=== PATIENT | female | born 1985 | race Caucasian/White ===

== ENCOUNTER 2017-07-31 16:26 | Emergency (ER) | payer MEDICAID ==
[2017-07-31 16:36] VITALS: RESP 16; TEMP 97.5
[2017-07-31] MEDS ORDERED: SULFAMETHOX/TMP 800/160 MG 1 TAB PO ONE (16:51)
[2017-07-31] MEDS ORDERED: traMADol 50 MG TAB PO ONE (16:56)
[2017-07-31 17:01] LABS: % IMMATURE GRANULYOCYTES 0.4 % (0.0-1.1); ABSOLUTE IMMATURE GRANULOCYTES 0.04 10^3/uL (0.00-0.10); ADD DIFF? NO; ADD MORPH? NO; ADD SCAN? NO; ATYPICAL LYMPHOCYTE FLAG 0 (0-99); FRAGMENT RBC FLAG 0 (0-99); HEMATOCRIT 40.3 % (38.0-47.0); HEMOGLOBIN 13.9 g/dL (12.6-16.3); LEFT SHIFT FLG 0 (0-99); LIPEMIA HEMOLYSIS FLAG 90 (0-99); MEAN CELL HEMOGLOBIN CONCENTR. 34.5 g/dL (32.4-36.7); MEAN PLATELET VOLUME 8.6 fL (8.7-11.7); PLATELET CLUMPS FLAG 0 (0-99); PLATELET COUNT 343 10^3/uL (150-400); RED BLOOD CELL COUNT 4.48 10^6/uL (4.18-5.33); RED CELL DISTRIBUTION WIDTH 12.4 % (11.5-15.2)
[2017-07-31] MEDS ORDERED: ACETAMINOPHEN 500 MG TAB PO ONE (17:09)
--- NOTE | 2017-07-31 17:24 | EDPHY ---
H & P Time Seen by Provider: 07/31/17 16:36 HPI/ROS: 2 weeks prior to arrival this patient used a nose ring to puncture through obstruction of her left naris nasal piercing that she had had for some time and thereafter developed redness to the nose. She thought it resolved over the past 2 days she has developed increased redness pain and a blister that ruptured spontaneously to the tip of the nose. He she reports increasing pain particularly over the past several hours now reports 8/10 pain despite 800 mg of ibuprofen 4 hours prior to arrival. She notes no other exacerbating factors. She states the pain feels like it radiates into her left cheek. ROS: She reports subjective fevers but has not checked her temperature. No high fevers or chills. No fatigue. HEENT: No difficulty breathing through her nose. No ear pain or intraoral complaints Neuro: No headache currently. Integumentary: No skin rash other than red nose. 5 point ROS is otherwise negative Social History: No alcohol. Smoking Status: Never smoked Physical Exam: Physical Exam Vital signs are normal. General: No acute distress HEENT: Nose: Erythema to the left lateral nares present and an area of 1 cm x 6 mm of desquamated tissue consistent with ruptured vesicle to the tip of the nose just left of center. There is mild erythema extends to the lateral nose but not to the cheek. Injured area exam reveals slight edema but no fluctuance. She is able to move air through the left dairy. Right ear exam is normal. No cheek swelling or tenderness. No sinus tenderness to percussion Neck: Supple with no meningismus. No anterior cervical lymphadenopathy. Eyes: Pupils equal and react to light. Extraocular motions are intact. Lungs: No respiratory distress. Cardiac: Brisk capillary refill is intact throughout. Skin: No rash or pallor. Neuro: Alert and oriented x3 with no sensorimotor deficits. Cranial nerves 2- 12 grossly intact Constitutional: Initial Vital Signs Temperature (C) 36.4 C 07/31/17 16:32 Heart Rate 89 07/31/17 16:32 Respiratory Rate 16 07/31/17 16:32 Blood Pressure 116/75 07/31/17 16:32 O2 Sat (%) 97 07/31/17 16:32 O2 Delivery Mode Room Air Allergies/Adverse Reactions: No Known Allergies Allergy (Verified 07/31/17 16:31) Home Medications: Medication Instructions Recorded Cefdinir [Omnicef (RX)] 300 mg PO BID #20 cap 07/31/17 Sulfamethox/Tmp 800/160 mg 1 tab PO BID #20 tab 07/31/17 [Bactrim Ds] oxyCODONE/APAP 5/325 [Percocet 1 - 2 tab PO Q4-6PRN PRN #6 tab 07/31/17 5/325 (*)] traMADol [Ultram 50 mg (*)] 50 - 100 mg PO Q4 PRN #20 tab 07/31/17 MDM/Departure - MDM Medications Given: Discontinued Medications Acetaminophen (Tylenol) 1,000 mg PO EDNOW ONE Stop: 07/31/17 17:10 Last Admin: 07/31/17 17:15 Dose: 1,000 mg Ceftriaxone Sodium 1 gm/ (Sodium Chloride) 100 mls @ 200 mls/hr IV EDNOW ONE PRN Reason: Protocol Stop: 07/31/17 17:20 Last Admin: 07/31/17 17:07 Dose: 100 mls Tramadol HCl (Ultram) 100 mg PO EDNOW ONE Stop: 07/31/17 16:57 Last Admin: 07/31/17 17:09 Dose: 100 mg Trimethoprim/Sulfamethoxazole (Bactrim Ds) 1 ea PO EDNOW ONE PRN Reason: Protocol Stop: 07/31/17 16:52 Last Admin: 07/31/17 17:09 Dose: 1 ea ED Course/Re-evaluation: IV Rocephin 1 g Bactrim p.o. Tramadol and Tylenol. The patient still complains of ongoing significant pain requests something more potent for pain for sleep. I counseled her regarding my caution to use Percocet. The patient has no red flag history-no history of opiates abuse, other drug abuse or addiction. I explained I think her pain will significantly improve over the next 24 hours but provided a small number of Percocet these instead of the tramadol for pain that prevents sleep. She understands that she can take tramadol and Percocet at the same time. Discussion: Patient with facial cellulitis isolated to the nose without clinical evidence of abscess, sepsis or other complicating factors. Will cover her with Omnicef and Bactrim after IV antibiotics here. She understands need to return should she have any significant worsening of her symptoms despite the treatment plan - Depart Disposition: Home, Routine, Self-Care Clinical Impression: Nose cellulitis Condition: Good Instructions: Sulfamethoxazole/Trimethoprim (By mouth), Tramadol (By mouth), Cefdinir (By mouth), Cellulitis (ED) Additional Instructions: Diagnosis: 1. Nasal cellulitis Plan: Apply warm packs to 3 times a day until symptoms resolve Bactrim antibiotic for 10 days Omnicef antibiotic for 10 days. Eat yogurt or take a probiotic while on these medications to prevent diarrhea. Ibuprofen, Tylenol and tramadol for pain control as needed. No driving, alcohol or come tramadol Return for any significant worsening despite treatment plan. Prescriptions: Cefdinir [Omnicef (RX)] 300 mg PO BID #20 cap oxyCODONE/APAP 5/325 [Percocet 5/325 (*)] 1 - 2 tab PO Q4-6PRN PRN #6 tab PRN Reason: Pain Sulfamethox/Tmp 800/160 mg [Bactrim Ds] 1 tab PO BID #20 tab traMADol [Ultram 50 mg (*)] 50 - 100 mg PO Q4 PRN #20 tab PRN Reason: breakthrough pain
[2017-07-31 17:56] VITALS: BP 124/68; PULSE 74; O2SAT 100
== END 2017-07-31 17:55 | disposition home or self-care (01) ==
LOC: CED 16:26
DX: J34.0 Abscess, furuncle and carbuncle of nose (principal)
CPT/HCPCS: 85025-PO; 96365; J0696

== ENCOUNTER 2017-08-18 15:12 | Emergency (ER) | payer MEDICAID ==
[2017-08-18 15:23] VITALS: BP 98/76; PULSE 92; RESP 18; TEMP 98.4; O2SAT 97
[2017-08-18] MEDS ORDERED: CEPHALEXIN 500 MG CAP PO ONE (15:29)
[2017-08-18] MEDS ORDERED: SULFAMETHOX/TMP 800/160 MG 1 TAB PO ONE (15:29)
--- NOTE | 2017-08-18 15:33 | EDPHY ---
H & P Stated Complaint: FACIAL CELLULITIS CONTINUES, INCREASING REDNESS & TENDERNESS, FINISHED ABX Time Seen by Provider: 08/18/17 15:20 HPI/ROS: CHIEF COMPLAINT: Facial cellulitis HISTORY OF PRESENT ILLNESS: Patient is a 32-year-old female who comes to the emergency department complaining of infection to her left cheek and nose. She was seen here on the of last month with an infection of that area after a nasal piercing. She was discharged on Bactrim and Omnicef which she took for 10 days. She states that it seem to improve but never completely resolved. Since going off the antibiotics at has worsened again. No fever. No pain with eye movement. No vision changes. No dental pain. No difficulty breathing. No fever. REVIEW OF SYSTEMS: Constitutional: denies: chills, fever, recent illness, recent injury EENTM: denies: blurred vision, double vision, nose congestion Respiratory: denies: cough, shortness of breath Cardiac: denies: chest pain, irregular heart rate, lightheadedness, palpitations Gastrointestinal/Abdominal: denies: abdominal pain, diarrhea, nausea, vomiting, blood streaked stools Genitourinary: denies: dysuria, frequency, hematuria, pain Musculoskeletal: denies: joint pain, muscle pain Skin: See HPI Neurological: denies: headache, numbness, paresthesia, tingling, dizziness, weakness Hematologic/Lymphatic: denies: blood clots, easy bleeding, easy bruising Immunologic/allergic: denies: HIV/AIDS, transplant EXAM: GENERAL: Well-appearing, well-nourished and in no acute distress. HEAD: Atraumatic, normocephalic. EYES: No pain with extraocular movement, no bulging, Pupils equal round and reactive to light, extraocular movements intact, sclera anicteric, conjunctiva are normal. No periorbital erythema or swelling. ENT: TMs normal, nares patent, oropharynx clear without exudates. Moist mucous membranes. NECK: Normal range of motion, supple without lymphadenopathy or JVD. LUNGS: Breath sounds clear to auscultation bilaterally and equal. No wheezes rales or rhonchi. HEART: Regular rate and rhythm without murmurs, rubs or gallops. ABDOMEN: Soft, nontender, normoactive bowel sounds. No guarding, no rebound. No masses appreciated. BACK: No CVA tenderness, no spinal tenderness, step-offs or deformities EXTREMITIES: Normal range of motion, no pitting or edema. No clubbing or cyanosis. NEUROLOGICAL: Cranial nerves II through XII grossly intact. Normal speech, normal gait. 5/5 strength, normal movement in all extremities, normal sensation PSYCH: Normal mood, normal affect. SKIN: Erythematous lesions with demarcated edges, weeping, some crust yellowish , Source: Patient Exam Limitations: No limitations - Personal History LMP (Females 10-55): 22-28 Days Ago - Medical/Surgical History Hx Asthma: No Hx Chronic Respiratory Disease: No Hx Diabetes: No Hx Cardiac Disease: No Hx Renal Disease: No Hx Cirrhosis: No Hx Alcoholism: No Hx HIV/AIDS: No Hx Splenectomy or Spleen Trauma: No Other PMH: MEd hx-migraines. Surg-oral surg - Family History Significant Family History: No pertinent family hx - Social History Smoking Status: Never smoked Alcohol Use: Sober Drug Use: None Constitutional: Initial Vital Signs Temperature (C) 36.9 C 08/18/17 15:20 Heart Rate 92 08/18/17 15:20 Respiratory Rate 18 08/18/17 15:20 Blood Pressure 98/76 L 08/18/17 15:20 O2 Sat (%) 97 08/18/17 15:20 O2 Delivery Mode Room Air Allergies/Adverse Reactions: No Known Allergies Allergy (Verified 08/18/17 15:19) Home Medications: Medication Instructions Recorded Cephalexin [Keflex] 500 mg PO TID #60 cap 08/18/17 Hydrocodone/APAP 5/325 [Stacy 1 - 2 tab PO Q4H PRN #10 tab 08/18/17 5/325 (RX)] Sulfamethox/Tmp 800/160 mg 1 tab PO BID #40 tab 08/18/17 [Bactrim Ds] Medical Decision Making ED Course/Re-evaluation: The patient appears to have erysipelas of her left cheek and nose. I will start her on Bactrim and Keflex for a longer course and have her follow up with ID. I warned her to return if it is not improving within 48 hours and she may require hospitalization and admission for IV antibiotics. At this point however it is rather mild and only covers a very small surface area. No sign of deep space infection. No sign of systemic infection. Differential Diagnosis: Partial list of the Differential diagnosis considered include but were not limited to; erysipelas, cellulitis and although unlikely based on the history and physical exam, I also considered abscess, retrobulbar infection, sinus infection, meningitis. I discussed these differential diagnoses and the plan with the patient as well as the usual and expected course. The patient understands that the diagnosis is provisional and that in medicine we are not always correct and that further workup is often warranted. Usual and customary warnings were given. All of the patient's questions were answered. The patient was instructed to return to the emergency department should the symptoms at all worsen or return, otherwise to followup with the physician as we discussed. - Data Points Medications Given: Discontinued Medications Cephalexin HCl (Keflex) 500 mg PO EDNOW ONE PRN Reason: Protocol Stop: 08/18/17 15:30 Last Admin: 08/18/17 15:44 Dose: 500 mg Trimethoprim/Sulfamethoxazole (Bactrim Ds) 1 ea PO EDNOW ONE PRN Reason: Protocol Stop: 08/18/17 15:30 Last Admin: 08/18/17 15:44 Dose: 1 ea Departure - Departure Disposition: Home, Routine, Self-Care Clinical Impression: Erysipelas Condition: Fair Instructions: Cellulitis (ED) Additional Instructions: Follow-up with Infectious Disease doctors recommended. Begin taking the antibiotics. You will need a longer course then previously. I have written for 20 days. Referrals: NONE *PRIMARY CARE P,. [Primary Care Provider] - As per Instructions Cyndy Ramirez MD [Medical Doctor] - 2-3 days, call for appt. Prescriptions: Cephalexin [Keflex] 500 mg PO TID #60 cap Hydrocodone/APAP 5/325 [Stacy 5/325 (RX)] 1 - 2 tab PO Q4H PRN #10 tab PRN Reason: Pain, Moderate Sulfamethox/Tmp 800/160 mg [Bactrim Ds] 1 tab PO BID #40 tab
== END 2017-08-18 15:54 | disposition home or self-care (01) ==
LOC: CED 15:12
DX: A46 Erysipelas (principal)

== ENCOUNTER 2017-12-25 08:23 | Emergency (ER) | payer MEDICAID ==
[2017-12-25] MEDS ORDERED: IPRATROPIUM/ALBUTEROL 3 ML DEYVIAL IH ONE (08:37)
[2017-12-25 08:48] VITALS: TEMP 98.8
--- NOTE | 2017-12-25 08:58 | EDPHY ---
H & P Stated Complaint: dyspnea,cough Time Seen by Provider: 12/25/17 08:42 HPI/ROS: CHIEF COMPLAINT: Cough HISTORY OF PRESENT ILLNESS: Patient is a 32-year-old female with a history of asthma who comes to the emergency department complaining of a persistent cough. She was seen 2 days ago at the urgent care and diagnosed with bronchitis as well as bilateral otitis media and sinusitis. She was given steroids, amoxicillin and an albuterol inhaler. She states that she has been using these except for the inhaler but she still has difficulty specially when she tries to lie flat sleep. She feels like her if lungs are filling up with fluid. She has not had a fever. No chest pain. No history of cardiac disease. REVIEW OF SYSTEMS: Constitutional: See HPI EENTM: See HPI denies: blurred vision, double vision, Respiratory: See HPI Cardiac: denies: chest pain, irregular heart rate, lightheadedness, palpitations Gastrointestinal/Abdominal: denies: abdominal pain, diarrhea, nausea, vomiting, blood streaked stools Genitourinary: denies: dysuria, frequency, hematuria, pain Musculoskeletal: denies: joint pain, muscle pain Skin: denies: lesions, rash, jaundice, bruising Neurological: denies: headache, numbness, paresthesia, tingling, dizziness, weakness Hematologic/Lymphatic: denies: blood clots, easy bleeding, easy bruising Immunologic/allergic: denies: HIV/AIDS, transplant EXAM: GENERAL: Well-appearing, well-nourished and in no acute distress. Frequent coughing nonproductive HEAD: Atraumatic, normocephalic. EYES: Pupils equal round and reactive to light, extraocular movements intact, sclera anicteric, conjunctiva are normal. ENT: TMs normal, nares patent, oropharynx clear without exudates. Moist mucous membranes. NECK: Normal range of motion, supple without lymphadenopathy or JVD. LUNGS: Breath sounds clear to auscultation bilaterally and equal. No wheezes rales or rhonchi. HEART: Regular rate and rhythm without murmurs, rubs or gallops. ABDOMEN: Soft, nontender, normoactive bowel sounds. No guarding, no rebound. No masses appreciated. BACK: No CVA tenderness, no spinal tenderness, step-offs or deformities EXTREMITIES: Normal range of motion, no pitting or edema. No clubbing or cyanosis. NEUROLOGICAL: Cranial nerves II through XII grossly intact. Normal speech, normal gait. 5/5 strength, normal movement in all extremities, normal sensation PSYCH: Normal mood, normal affect. SKIN: Warm, dry, normal turgor, no visible rashes or lesions. Source: Patient Exam Limitations: No limitations - Personal History Current Tetanus Diphtheria and Acellular Pertussis (TDAP): Unsure - Medical/Surgical History Hx Asthma: Yes Hx Chronic Respiratory Disease: No Hx Diabetes: No Hx Cardiac Disease: No Hx Renal Disease: No Hx Cirrhosis: No Hx Alcoholism: No Hx HIV/AIDS: No Hx Splenectomy or Spleen Trauma: No Other PMH: MEd hx-migraines,bronchitis. Surg-oral surg - Family History Significant Family History: No pertinent family hx - Social History Smoking Status: Never smoked Alcohol Use: Sober Drug Use: None Constitutional: Initial Vital Signs Temperature (C) 37.1 C 12/25/17 08:41 Heart Rate 74 12/25/17 08:41 Respiratory Rate 20 12/25/17 08:41 Blood Pressure 110/79 12/25/17 08:41 O2 Sat (%) 98 12/25/17 08:41 O2 Delivery Mode Room Air Allergies/Adverse Reactions: No Known Allergies Allergy (Verified 12/25/17 08:40) Home Medications: Medication Instructions Recorded AMOXICILLIN 12/25/17 Albuterol 12/25/17 Prednisone 12/25/17 Promethazine HCl/Codeine 5 ml PO Q4-6PRN PRN #90 ml 12/25/17 [Prometh-Codein 6.25-10 mg/5 ml] Medical Decision Making - Diagnostics Imaging Results: Imaging Impressions Chest X-Ray 12/25/17 08:37 Impression: Mild bronchitis. No pneumonia. Imaging: I viewed and interpreted images myself (Bronchitis changes no focal infiltrate) ED Course/Re-evaluation: 9:00 a.m. we discussed the x-ray results. The patient feels reassured. She is satting 98% on room air. Her lung exam is unremarkable. Her ear and throat exam is also unremarkable. I encouraged her to continue the antibiotics, steroids and inhaler. We also discussed adding a cough suppressant. She is agreeable to this. I encouraged rest and hydration. We discussed indications for returning. Differential Diagnosis: Partial list of the Differential diagnosis considered include but were not limited to; bronchitis, pneumonia, asthma exacerbation and although unlikely based on the history and physical exam, I also considered acute coronary disease , pneumothorax my dissection. I discussed these differential diagnoses and the plan with the patient as well as the usual and expected course. The patient understands that the diagnosis is provisional and that in medicine we are not always correct and that further workup is often warranted. Usual and customary warnings were given. All of the patient's questions were answered. The patient was instructed to return to the emergency department should the symptoms at all worsen or return, otherwise to followup with the physician as we discussed. - Data Points Medications Given: Discontinued Medications Albuterol/Ipratropium (Duoneb) 3 ml IH EDNOW ONE Stop: 12/25/17 08:38 Last Admin: 12/25/17 08:42 Dose: 3 ml Departure - Departure Disposition: Home, Routine, Self-Care Clinical Impression: Acute bronchitis Qualifiers: Bronchitis organism: unspecified organism Qualified Code(s): J20.9 - Acute bronchitis, unspecified Condition: Fair Instructions: Acute Bronchitis (ED) Referrals: Kathleen Cueva MD [Doctor of Osteopathy] - As per Instructions Prescriptions: Promethazine HCl/Codeine [Prometh-Codein 6.25-10 mg/5 ml] 5 ml PO Q4-6PRN PRN # 90 ml PRN Reason: Cough, Moderate
[2017-12-25 09:19] VITALS: BP 118/72; PULSE 78; RESP 18; O2SAT 97
== END 2017-12-25 09:26 | disposition home or self-care (01) ==
LOC: CED 08:23
DX: J20.9 Acute bronchitis, unspecified (principal); J45.909 Unspecified asthma, uncomplicated
CPT/HCPCS: 71046-PO

== ENCOUNTER 2018-02-06 16:19 | Emergency (ER) | payer MEDICAID ==
[2018-02-06 16:24] VITALS: BP 124/70
--- NOTE | 2018-02-06 16:51 | EDPHY ---
H & P Time Seen by Provider: 02/06/18 16:25 HPI/ROS: CHIEF COMPLAINT: Left hip pain HISTORY OF PRESENT ILLNESS: 32-year-old female presents to the emergency department by private vehicle complaining of severe pain in her left hip. She states that she has had pain over the last 1 month that has become acutely worse in the last few days. She feels like her left hip will dislocate and then relocate briefly. This happened several times daily. 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 She has pain even at rest was just sitting on the bed. She denies pain in her left knee or left ankle. She has some mild left low back pain. She denies radicular symptoms in her lower legs. She denies weakness in her lower extremities. Denies bowel or bladder incontinence. Denies any symptoms in the right lower extremity or upper extremities bilaterally. REVIEW OF SYSTEMS: Constitutional: No fever, no chills. Eyes: No double or blurry vision. ENT: No sore throat. Respiratory: No cough, no shortness of breath. Cardiac: No chest pain. Gastrointestinal: No abdominal pain, vomiting or diarrhea. Genitourinary: No dysuria. Musculoskeletal: No neck or back pain. Skin: No rashes. Neurological: No headache. Past Medical/Surgical History: History of previous opiate abuse, vertebral spine fracture in the past Social History: Smoking Status: Current every day smoker Physical Exam: General Appearance: Alert, mild distress. Tearful. Eyes: Pupils equal and round. Extraocular motions are all intact. ENT: Mouth: Mucous membranes moist. Respiratory: No wheezing, rhonchi, or rales, lungs are clear to auscultation. Cardiovascular: Regular rate and rhythm. Gastrointestinal: Abdomen is soft and nontender, no masses, no rebound or guarding, bowel sounds normal. Neurological: Alert and oriented x 3, cranial nerves II through XII grossly intact Skin: Warm and dry, no rashes. Musculoskeletal: Nontender to palpate along the cervical, thoracic or lumbar spine. Neck is supple. Mild pain with palpation over the left SI joint. No palpable crepitus or other bony abnormality. Extremities: Full range of motion and no peripheral edema. Normal gait. She has pain with flexing her left hip and pain with externally rotating her left hip. There is no redness or obvious swelling noted to the left hip. Nontender to palpate the left knee or left ankle. Full range of motion of the right lower extremity and upper extremities bilaterally. Psychiatric: Patient is oriented X 3, there is no agitation. Constitutional: Initial Vital Signs Temperature (C) 37.0 C 02/06/18 16:21 Heart Rate 78 02/06/18 16:21 Respiratory Rate 16 02/06/18 16:21 Blood Pressure 124/70 H 02/06/18 16:21 O2 Sat (%) 97 02/06/18 16:21 O2 Delivery Mode Room Air Allergies/Adverse Reactions: No Known Allergies Allergy (Verified 12/25/17 08:40) Medical Decision Making - Diagnostics Imaging Results: Imaging Impressions Hip X-Ray 02/06/18 16:48 Impression: 1. No acute osseous findings. 2. Additional findings as above. Imaging: I viewed and interpreted images myself ED Course/Re-evaluation: 32-year-old female presents to the emergency department with ongoing left hip pain. The patient has pain with palpation to the lateral aspect of her left hip. There is no clinical indication of dislocation of her hip. She is able to ambulate although she has and tell check gait and clearly is uncomfortable. X-rays of her left hip reveal no fractures. The patient was given orthopedic referral. She was encouraged to use anti-inflammatories. I do not think further imaging is indicated in the emergency department. She is neurovascularly intact. Differential Diagnosis: Including but not limited to hip sprain, radiculopathy, contusion, osteoarthritis, septic arthritis Departure - Departure Disposition: Home, Routine, Self-Care Clinical Impression: Left hip pain Condition: Good Instructions: Arthralgia (ED), Hip Pain (ED) Additional Instructions: Activity as tolerated. Follow up with orthopedic surgeon as discussed. Ibuprofen 600 mg every 8 hr as needed for pain. Return to the emergency department if you develop numbness or tingling in your toes, weakness in your leg, or if you feel worse in any way. Referrals: Philip Tubbs MD [Medical Doctor] - 2-3 days, call for appt. (Orthopedic surgeon on-call)
== END 2018-02-06 17:22 | disposition home or self-care (01) ==
DX: M25.552 Pain in left hip (principal); F17.200 Nicotine dependence, unspecified, uncomplicated